=== PATIENT | male | born 1975 | race Caucasian/White ===

== ENCOUNTER 2021-12-13 23:44 | Emergency (ER) | payer SELFPAY ==
[2021-12-14] MEDS ORDERED: predniSONE 10 MG Tab PO ONE (00:28)
== END 2021-12-14 00:38 | disposition home or self-care (01) ==
LOC: MW.ED 23:44
DX: M06.9 Rheumatoid arthritis, unspecified (principal); Z79.899 Other long term (current) drug therapy
CPT/HCPCS: 99283; A9270

== ENCOUNTER 2022-12-22 02:07 | Emergency (ER) | payer SELFPAY | END 2022-12-22 02:45 | disposition home or self-care (01) | LOC: MW.ED 02:07 | DX: H60.92 Unspecified otitis externa, left ear (principal); H66.92 Otitis media, unspecified, left ear; M06.9 Rheumatoid arthritis, unspecified; Z88.2 Allergy status to sulfonamides; Z79.899 Other long term (current) drug therapy | CPT/HCPCS: 99282; 99283 ==

== ENCOUNTER 2024-04-26 16:40 | Emergency (ER) | payer SELFPAY | END 2024-04-26 18:26 | disposition left against medical advice (07) | LOC: MW.ED 16:40 | DX: Z53.21 Procedure and treatment not carried out due to patient leaving prior to being seen by health care provider (principal) ==

== ENCOUNTER 2024-04-27 06:07 | Emergency (ER) | payer SELFPAY ==
[2024-04-27] MEDS: predniSONE 10 MG Tab PO ONE (06:40)
== END 2024-04-27 06:51 | disposition home or self-care (01) ==
LOC: MW.ED 06:07
DX: Z76.0 Encounter for issue of repeat prescription (principal); Z79.899 Other long term (current) drug therapy; Z88.2 Allergy status to sulfonamides; Z75.8 Other problems related to medical facilities and other health care
CPT/HCPCS: 99283; A9270